=== PATIENT | female | born 1955 | race Caucasian/White ===

== ENCOUNTER 2019-09-24 23:05 | Emergency (ER) | payer MEDICARE, OTHER ==
--- NOTE | 2019-09-24 23:33 | EDM.PDOC ---
ED HPI GENERAL MEDICAL PROBLEM - General Chief Complaint: Abdominal Pain Stated Complaint: KIDNEY STONE Time Seen by Provider: 09/24/19 23:33 Source of Information: Reports: Patient History Limitations: Reports: No Limitations - History of Present Illness INITIAL COMMENTS - FREE TEXT/NARRATIVE: pt developed acute left flank pain going down into the groin. She is having some burning on urination Onset: Sudden, Other ( This has gotten progrwessively worse.) Duration: Hour(s): Location: Reports: Abdomen Associated Symptoms: Reports: No Other Symptoms - Related Data Allergies Allergy/AdvReac Type Severity Reaction Status Date / Time Sulfa (Sulfonamide Allergy Swelling Verified 09/24/19 23:29 Antibiotics) IVP Dye Allergy Rash Uncoded 09/24/19 23:29 Home Meds: Home Meds Aspirin [Halfprin] 81 mg PO DAILY 07/20/17 [History] Sotalol [Betapace] 80 mg PO BID 07/20/17 [History] Apixaban [Eliquis] 5 mg PO BID 03/25/19 [History] allopurinoL [Zyloprim] 300 mg PO DAILY 03/25/19 [History] Past Medical History HEENT History: Reports: Impaired Vision Cardiovascular History: Reports: Afib, Blood Clots/VTE/DVT, Other (See Below) Other Cardiovascular History: Varicose veins Genitourinary History: Reports: Renal Calculus 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: , Other (See Below) Other TELEPHONE INTERVIEWER History: x3 Musculoskeletal History: Reports: Other (See Below) Other Musculoskeletal History: R knee pain - Infectious Disease History Infectious Disease History: Reports: Chicken Pox - Past Surgical History Musculoskeletal Surgical History: Reports: Knee Replacement, Other (See Below) Other Musculoskeletal Surgeries/Procedures:: s/p 10/15/2017 L TKA Social & Family History - Caffeine Use Caffeine Use: Reports: None ED ROS GENERAL - Review of Systems Review Of Systems: See Below Constitutional: Reports: No Symptoms HEENT: Reports: No Symptoms Respiratory: Reports: No Symptoms Cardiovascular: Reports: No Symptoms Endocrine: Reports: No Symptoms GI/Abdominal: Reports: Abdominal Pain : Reports: Dysuria, Frequency Musculoskeletal: Reports: Back Pain Skin: Reports: No Symptoms Neurological: Reports: No Symptoms ED EXAM, GI/ABD - Physical Exam Exam: See Below Text/Narrative:: pt arrived with left flank pain and pain into the groin She states the pain started earlier tonight. Exam Limited By: Uncooperative General Appearance: Alert, Anxious, Moderate Distress Ears: Normal TMs Nose: Normal Inspection Throat/Mouth: Normal Inspection Head: Atraumatic Neck: Normal Inspection Respiratory/Chest: No Respiratory Distress Cardiovascular: Regular Rate, Rhythm (Female) Exam: Deferred Rectal (Female) Exam: Deferred Back Exam: Normal Inspection Extremities: Normal Inspection Neurological: Alert, Oriented, Normal Cognition Psychiatric: Anxious Course - Vital Signs Last Recorded V/S: Last Vital Signs Temp 36.8 C 09/24/19 23:32 Pulse 61 09/24/19 23:32 Resp 20 09/24/19 23:32 BP 144/63 H 09/24/19 23:32 Pulse Ox 96 09/24/19 23:32 - Orders/Labs/Meds Labs: Laboratory Tests 09/24/19 09/24/19 09/24/19 Range/Units 23:40 23:44 23:44 WBC 10.7 (4.5-11.0) K/uL RBC 4.80 (3.30-5.50) M/uL Hgb 13.7 (12.0-15.0) g/dL Hct 43.5 (36.0-48.0) % MCV 91 (80-98) fL MCH 29 (27-31) pg MCHC 32 (32-36) % Plt Count 316 (150-400) K/uL Neut % (Auto) 85 H (36-66) % Lymph % (Auto) 11 L (24-44) % Owen % (Auto) 3 (2-6) % Eos % (Auto) 1 L (2-4) % Baso % (Auto) 0 (0-1) % Sodium 137 L (140-148) mmol/L Potassium 4.0 (3.6-5.2) mmol/L Chloride 102 (100-108) mmol/L Carbon Dioxide 26 (21-32) mmol/L Anion Gap 13.0 (5.0-14.0) mmol/L BUN 22 H (7-18) mg/dL Creatinine 1.1 H (0.6-1.0) mg/dL Est Cr Clr Drug Dosing 56.23 mL/min Estimated GFR (MDRD) 50 L (>60) Glucose 150 H (74-106) mg/dL Calcium 8.8 (8.5-10.1) mg/dL Total Bilirubin 0.6 (0.2-1.0) mg/dL AST 23 (15-37) U/L ALT 30 (12-78) U/L Alkaline Phosphatase 95 (46-116) U/L Total Protein 7.5 (6.4-8.2) g/dL Albumin 3.4 (3.4-5.0) g/dL Globulin 4.1 H (2.3-3.5) g/dL Albumin/Globulin Ratio 0.8 L (1.2-2.2) Urine Color Yellow (YELLOW) Urine Appearance Cloudy A (CLEAR) Urine pH 6.5 (5.0-8.0) Ur Specific Plaza >= 1.030 (1.008-1.030) Urine Protein Trace H (NEGATIVE) mg/dL Urine Glucose (UA) Negative (NEGATIVE) mg/dL Urine Ketones 40 H (NEGATIVE) mg/dL Urine Occult Blood Large H (NEGATIVE) Urine Nitrite Negative (NEGATIVE) Urine Bilirubin Negative (NEGATIVE) Urine Urobilinogen 0.2 (0.2-1.0) EU/dL Ur Leukocyte Esterase Negative (NEGATIVE) Urine RBC 20-30 H (0-5) Urine WBC 5-10 H (0-5) Ur Epithelial Cells Few Amorphous Sediment Not seen Urine Bacteria Moderate Urine Mucus Few Meds: Medications Discontinued Medications Generic Name Dose Route Start Last Admin Trade Name Freq PRN Reason Stop Dose Admin Hydromorphone HCl 0.5 mg 09/25/19 00:00 09/25/19 00:04 Dilaudid IVPUSH 09/25/19 00:01 0.5 mg ONETIME ONE Administration Sodium Chloride 1,000 mls @ 999 mls/hr 09/24/19 23:45 09/24/19 23:57 Normal Saline IV 999 mls/hr ASDIRECTED JESSICA Administration Sodium Chloride 1,000 mls @ 999 mls/hr 09/25/19 00:45 09/25/19 01:42 Normal Saline IV 999 mls/hr ASDIRECTED JESSICA Administration Ceftriaxone Sodium 1 gm/ 50 mls @ 100 mls/hr 09/25/19 01:47 09/25/19 02:08 Sodium Chloride IV 09/25/19 02:16 100 mls/hr ONETIME ONE Administration Ketorolac Tromethamine 30 mg 09/25/19 01:28 09/25/19 01:42 Toradol IVPUSH 09/25/19 01:29 30 mg ONETIME ONE Administration Ondansetron HCl 4 mg 09/24/19 23:54 09/24/19 23:57 Zofran IVPUSH 09/24/19 23:55 4 mg ONETIME ONE Administration Ondansetron HCl 4 mg 09/25/19 01:30 09/25/19 01:40 Zofran IVPUSH 09/25/19 01:31 4 mg ONETIME ONE Administration Tamsulosin HCl 0.4 mg 09/25/19 01:33 09/25/19 01:41 Flomax PO 09/25/19 01:34 0.4 mg ONETIME ONE Administration - Re-Assessments/Exams Free Text/Narrative Re-Assessment/Exam: 09/25/19 01:31 urine had alot of rbcs A cat scan of the abdoman was obtained which showed a clump of 3 stones creating a stone mass of 6 mm. This is down by the bladder. Departure - Departure Time of Disposition: 05:30 Disposition: Home, Self-Care 01 Condition: Fair Clinical Impression: Ureteral stone with hydronephrosis, UTI (urinary tract infection) - Discharge Information Instructions: Urinary Tract Infection, Adult, [id number], Hydronephrosis, Dietary Guidelines to Help Prevent Kidney Stones Referrals: Sheeba Barney PA [Primary Care Provider] - Forms: ED Department Discharge Care Plan Goals: tordol 10 m q6h prn for pain, percocet 5/ 325 q6h for severe pain push fluids, flomax .4 mg po daily, strain all urine. See regular Dr in 3 days if stone has not passed. Sepsis Event Note - Focused Exam Date Exam was Performed: 09/30/19 Time Exam was Performed: 07:07
[2019-09-24] MEDS ORDERED: Sodium Chloride 0.9% 1,000 ML IV SCH (23:45)
[2019-09-24] MEDS ORDERED: Ondansetron 4 MG/2 ML SDV IVPUSH ONE (23:54)
[2019-09-25] MEDS ORDERED: HYDROmorphone 0.5 MG/0.5 ML Syringe IVPUSH ONE
[2019-09-25] MEDS ORDERED: Sodium Chloride 0.9% 1,000 ML IV SCH (00:45)
--- NOTE | 2019-09-25 01:22 | CRLCT ---
INDICATION: Left flank pain history of stones TECHNIQUE: CT Abdomen and pelvis without i.v. contrast. Coronal and sagittal reformats were obtained. COMPARISON: 02/15/2018 FINDINGS: Lower chest: Unremarkable. Liver: Unremarkable. Spleen: Unremarkable. Pancreas: Unremarkable. Gallbladder: Unremarkable. Kidney: There is a 4.5 cm cystic lesion seen in the right lower pole. There is a cystic lesion in the midzone of the left kidney measuring 5.7 cm. Bilateral nonobstructing renal stones are noted measuring up to 1.2 cm. A 1 cm stone is present in the left ureteropelvic junction causing moderate left renal pelvicaliectasis. There are 2 stones measuring 3 mm seen in the left uterus sacral junction with a least 3 stones in the distal left ureter present measuring up to 6 mm. These cause mild left hydroureter. Adrenal: Unremarkable. Bowel: Unremarkable. The appendix is not identified. Vascular: Unremarkable. Lymph: Unremarkable. Peritoneum: Unremarkable. No pneumoperitoneum is seen. No significant ascites is noted. Pelvis: There is central hypodensity within the uterus measuring 1.6 cm. Soft tissue: Unremarkable. Bone: Unremarkable. IMPRESSIONS: 1. A 1 cm stone is present in the left ureteropelvic junction causing moderate left renal pelvicaliectasis. There are 2 stones measuring 3 mm seen in the left uterus sacral junction with a least 3 stones in the distal left ureter present measuring up to 6 mm. These cause mild left hydroureter. 2. There is central hypodensity within the uterus measuring 1.6 cm. Assessment with outpatient pelvic ultrasound is recommended to exclude endometrial abnormalities. Dictated by Logan Ruiz MD @ 09/25/2019 1:20:45 AM Please note that all CT scans at this facility use dose modulation, iterative reconstruction, and/or weight-based dosing when appropriate to reduce radiation dose to as low as reasonably achievable. Dictated by: Logan Ruiz MD @ 09/25/2019 01:20:54 (Electronically Signed)
[2019-09-25] MEDS ORDERED: Ketorolac 30 MG/ML SDV IVPUSH ONE (01:28)
[2019-09-25] MEDS ORDERED: Ondansetron 4 MG/2 ML SDV IVPUSH ONE (01:30)
[2019-09-25] MEDS ORDERED: Tamsulosin 0.4 MG Cap.ER PO ONE (01:33)
[2019-09-25] MEDS ORDERED: cefTRIAXone 1 GM in Sodium Chloride 0.9% 50 ML IV ONE (01:47)
== END 2019-09-25 02:30 | disposition home or self-care (01) ==
LOC: JP.ED 23:05
DX: N13.2 Hydronephrosis with renal and ureteral calculous obstruction (principal); N39.0 Urinary tract infection, site not specified; I48.91 Unspecified atrial fibrillation; Z79.01 Long term (current) use of anticoagulants; Z79.82 Long term (current) use of aspirin; Z79.899 Other long term (current) drug therapy; Z88.2 Allergy status to sulfonamides; Z91.041 Radiographic dye allergy status
CPT/HCPCS: 36415; 74176; 80053; 81001; 85025; 87086; 96365; 96375; 96376; 99283; 99284; A9270; J0696; J1170; J1885; J2405; J7030; J7050